=== PATIENT | female | born 1965 | race African-American/Black ===

== ENCOUNTER 2023-08-17 16:43 | Emergency (ER) | payer SELFPAY ==
--- NOTE | 2023-08-17 | ECG_ITS ---
Test Reason : SOB Blood Pressure : / mmHG Vent. Rate : 060 BPM Atrial Rate : 060 BPM P-R Int : 170 ms QRS Dur : 090 ms QT Int : 412 ms P-R-T Axes : 049 016 017 degrees QTc Int : 412 ms Normal sinus rhythm Normal ECG No previous ECGs available Referred By: Generic ED Physician Electronically Signed By:Stephon Jacques
[2023-08-17 16:55] VITALS: BP 183/102; BP 200/116; PULSE 69; PULSE 79; RESP 16; TEMP 36.3; O2SAT 100; O2SAT 99; BMI 32.8
[2023-08-17 17:18] LABS: MANUAL DIFF FLAG NO
[2023-08-17 17:22] LABS: Basophils Absolute Auto 0.1 X10*3/uL (0.0-0.2); Basophils Percent Auto 0.8 % (0-2); Eosinophils Absolute Auto 0.1 X10*3/uL (0.0-0.4); Eosinophils Percent Auto 0.7 % (0-4); Hematocrit 37.5 % (37.0-47.0); Hemoglobin 12.1 g/dl (12.0-16.0); Imm Gran Abs Auto 0.02 X10*3/uL (0.00-0.03); Imm Gran Pct Auto 0.3 % (0.0-0.4); Lymphocytes Absolute Auto 2.6 X10*3/uL (1.2-4.9); Lymphocytes Percent Auto 35.1 % (20-40); Mean Corpuscular HGB Conc 32.3 g/dl (31.0-35.0); Mean Corpuscular Hemoglobin 25.9 pg (27.0-33.0); Mean Corpuscular Volume 80.3 fL (80.0-98.0); Mean Platelet Volume 8.8 fL (9.4-12.3); Monocytes Absolute Auto 0.4 X10*3/uL (0.1-1.2); Monocytes Percent Auto 5.4 % (2-11); Neutrophils Absolute Auto 4.3 x10*3/uL (2.0-8.3); Neutrophils Percent Auto 57.7 % (45-73); Platelet Count 354 X10*3/uL (160-400); Red Blood Count 4.67 X10*6/uL (4.20-5.50); Red Cell Distribution Width 15.8 % (11.0-16.0); White Blood Count 7.4 X10*3/uL (4.8-10.8)
[2023-08-17 17:43] LABS: Alanine Aminotransferase 29 U/L (0-31); Albumin Level 3.6 g/dL (3.5-5.0); Alkaline Phosphatase 131 U/L (39-117); Anion Gap 9 (12-20); Aspartate Amino Transferase 22 U/L (5-31); Bilirubin Total 0.1 mg/dL (0.0-1.0); Blood Urea Nitrogen 16 mg/dL (9-16); Calcium 10.1 mg/dL (8.4-10.2); Carbon Dioxide 26 mmol/L (22-29); Chloride 110 mmol/L (96-108); Creatinine Clr Calc Pharmacy 86.2; Estimated Glomerular Filt Rate > 60; Glucose Random 107 mg/dL (60-115); Potassium 3.4 mmol/L (3.3-5.1); Sodium 142 mmol/L (135-145); Total Protein 7.6 g/dL (6.5-8.0)
[2023-08-17 17:55] VITALS: BP 181/80; PULSE 65; RESP 16; TEMP 36.4; O2SAT 99
[2023-08-17 18:19] LABS: Troponin-I High Sensitivity < 2.7 ng/L (<3.5-17.0)
--- NOTE | 2023-08-17 18:22 | ED_ITS ---
HPI - General Adult General Chief complaint: General Medical Stated complaint: feeling faint, weak,bp-200/116 Time Seen by Provider: 08/17/23 17:51 Source: patient, family, RN notes reviewed and old records reviewed Mode of arrival: ambulatory Limitations: no limitations History of Present Illness ED Provider: Alvaro MENDOZA narrative: 58-year-old female with past medical history significant for hypertension presents for evaluation of headache and ?feeling faint. ? 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 ? At the time my evaluation, the patient reports that she feels well with no complaints whatsoever Her blood pressure on arrival to the ED is 183/102 Related Data Previous Rx's ?Medication ?Instructions ?Recorded amlodipine 5 mg tablet 5 mg PO DAILY #30 tabs 08/17/23 Allergies Allergy/AdvReac Type Severity Reaction Status Date / Time No Known Allergies Allergy Verified 08/17/23 16:57 Review of Systems 2 Constitutional: Constitutional: Denies body ache(s), Denies chills, Denies fever(s) and Reports headache(s) Eyes: Eyes: Denies blurry vision ENT: Denies vertigo, Reports dizziness and Reports headache(s) Cardiovascular: Cardiovascular: Denies chest pain and Denies dyspnea Respiratory: Respiratory: Denies cough and Denies dyspnea Gastrointestinal: Gastrointestinal: Denies abdominal pain, Denies nausea and Denies vomiting Musculoskeletal: Musculoskeletal: Denies back pain, Denies arthralgias and Denies joint swelling Integumentary/Breasts: Skin/Breast: Denies rash Neurologic: Denies vertigo, Reports dizziness and Reports headache(s) [facility] Social History Social History Smoked in Last 30 Days: No Use of substances other than those prescribed or required for medical reasons: No Advance Directives: No Do you have a plan to hurt others: No Plan Patient : No Physical Exam ED Vital Signs: Vital Signs - 24 hr 08/17/23 16:55 08/17/23 17:55 08/17/23 19:06 Temperature 97.4 F 97.6 F Pulse Rate 69 65 Respiratory Rate 16 16 Blood Pressure 183/102 H 181/80 H 181/80 H Pulse Oximetry 100 99 Oxygen Delivery Method Room Air 08/17/23 19:12 Temperature 97.6 F Pulse Rate 65 Respiratory Rate 16 Blood Pressure 181/80 H Pulse Oximetry 99 Oxygen Delivery Method Room Air BMI result Body Mass Index 32.8 Const General: healthy appearing, comfortable, no acute distress, alert and awake Nutritional Appearance: well nourished Orientation/consciousness: patient oriented x3 HENMT Head: Yes normocephalic and Yes atraumatic Eyes Eyelids: Yes eyelids normal Conjunctivae: conjunctivae normal Sclerae: sclerae normal Corneas: corneas normal Pupils: Equal, round and reactive pupils present EOM: EOMs intact bilaterally Neck Neck: Yes full ROM Resp Effort & Inspection: normal respiratory effort, able to speak in complete sentences, no audible wheezes and not labored Auscultation: clear to auscultation bilaterally Cardio Rate: regular rate Rhythm: regular rhythm GI Inspection: No distended Palpation (GI): Soft to palpation, not firm, nontender, no guarding and not rigid Skin General skin exam: elasticity normal Neuro General: patient oriented x3 Cranial nerves: Yes CN's II-XII intact bilaterally, Yes Equal, round and reactive pupils present and Yes Bilaterally intact EOM present Cognition (Neuro): normal cognition Extrem Other: Moving all extremities well without any obvious deformities Medications Administered Discontinued Medications Generic Name Dose Route Start Last Admin Trade Name Freq PRN Reason Stop Dose Admin Amlodipine Besylate 5 mg 08/17/23 18:56 08/17/23 19:06 Amlodipine Besylate 5 Mg Tablet PO 08/17/23 18:57 5 mg ONCE ONE Administration Protocol Medical Decision Making Medical Decision Making [facility] Narrative: 58-year-old female presents for evaluation of lightheadedness and near syncope. The patient never had a syncopal episode, she denies any headache, chest pain. She has been noncompliant with her antihypertensive medication for least 1 month. She has unsure of the medication name that she discontinued. Her labs have no significant abnormalities, her EKG is nonischemic and without arrhythmia. The patient is hypertensive on arrival likely due to discontinuing her pressure medication. She is currently asymptomatic. I do not see any indication for further emergent workup. Will start the patient on amlodipine as she does not want to be on any diuretics at this time. She reports that she has a PCP in [place] that she will follow-up with Differential Diagnosis Differential Diagnoses: The differential diagnosis associated with the presentation includes Hypertension Hypertensive urgency Medication noncompliance Near-syncope Syncope ACS less likely Lab Data MDM Lab Attestation statement: I reviewed the patient's lab results. No leukocytosis or anemia. Normal platelet count. No electrolyte abnormalities. Normal renal function. Troponin undetectable 08/17/23 17:15 08/17/23 17:15 Labs: Lab Results 08/17/23 08/17/23 Range/Units 17:15 17:54 WBC 7.4 (4.8-10.8) X10*3/uL RBC 4.67 (4.20-5.50) X10*6/uL Hgb 12.1 (12.0-16.0) g/dl Hct 37.5 (37.0-47.0) % MCV 80.3 (80.0-98.0) fL MCH 25.9 L (27.0-33.0) pg MCHC 32.3 (31.0-35.0) g/dl RDW 15.8 (11.0-16.0) % Plt Count 354 (160-400) X10*3/uL MPV 8.8 L (9.4-12.3) fL Immature Gran % (Auto) 0.3 (0.0-0.4) % Neut % (Auto) 57.7 (45-73) % Lymph % (Auto) 35.1 (20-40) % Josephine % (Auto) 5.4 (2-11) % Eos % (Auto) 0.7 (0-4) % Baso % (Auto) 0.8 (0-2) % Lymph # (Auto) 2.6 (1.2-4.9) X10*3/uL Josephine # (Auto) 0.4 (0.1-1.2) X10*3/uL Eos # (Auto) 0.1 (0.0-0.4) X10*3/uL Baso # (Auto) 0.1 (0.0-0.2) X10*3/uL Abs Immat Gran (auto) 0.02 (0.00-0.03) X10*3/uL Absolute Neuts (auto) 4.3 (2.0-8.3) x10*3/uL Absolute Nucleated RBC 0.000 (0.0-0.012) X10*3/uL Nucleated RBC % (auto) 0.0 (0.0-0.2) /100WBC Sodium 142 (135-145) mmol/L Potassium 3.4 (3.3-5.1) mmol/L Chloride 110 H (96-108) mmol/L Carbon Dioxide 26 (22-29) mmol/L Anion Gap 9 L (12-20) BUN 16 (9-16) mg/dL Creatinine 0.73 (0.5-1.4) mg/dL Estim Creat Clear Calc 86.2 Estimated GFR > 60 Random Glucose 107 (60-115) mg/dL Calcium 10.1 (8.4-10.2) mg/dL Total Bilirubin 0.1 (0.0-1.0) mg/dL AST 22 (5-31) U/L ALT 29 (0-31) U/L Alkaline Phosphatase 131 H (39-117) U/L Troponin I High Sens < 2.7 (<3.5-17.0) ng/L Total Protein 7.6 (6.5-8.0) g/dL Albumin 3.6 (3.5-5.0) g/dL Independent Interpretation I performed an independent interpretation of an: EKG (Normal sinus rhythm with a rate of [address] segment elevations or depressions, no ectopy. No previous for comparison) Discharge Plan Discharge Clinical Impression: Hypertension Patient Disposition: Home, Self-Care Instructions: Chronic Hypertension (ED) Additional Instructions: Your workup in the ER today was reassuring Your blood pressure was elevated today and this is likely due to You discontinuing your blood pressure medication I prescribed a new medication called amlodipine 5 mg which you should take daily Follow-up with your primary doctor as soon as possible Return for new or worsening symptoms Prescriptions: New amlodipine 5 mg tablet 5 mg PO DAILY Qty: 30 0RF Interventions: ED Discharge Assessment Last Done: 08/17/23 19:12 Discharge Date/Time: 08/17/23 19:13 Print Language: Belgian
[2023-08-17 19:06] VITALS: BP 181/80
[2023-08-17] MEDS: amLODIPine Besylate 5 MG TABLET PO (19:06)
--- NOTE | 2023-08-17 19:10 | PC.NURSE ---
pt medicated per provider order.
[2023-08-17 19:12] VITALS: BP 181/80; PULSE 65; RESP 16; TEMP 36.4; O2SAT 99
== END 2023-08-17 19:13 | disposition home or self-care (01) ==
PROVIDERS: Emergency Provider Student in an Organized Health Care Education/Training Program
DX: I10 Essential (primary) hypertension (principal); Z91.148 Patient's other noncompliance with medication regimen for other reason; R51.9 Headache, unspecified; R06.02 Shortness of breath
CPT/HCPCS: 36415; 80053; 84484; 85025; 93005; 99283; 99284

== ENCOUNTER → 2023-08-17 17:08 | Outpatient (BNV) | payer SELFPAY | PROVIDERS: Emergency Provider Student in an Organized Health Care Education/Training Program; Visit Provider Internal Medicine Cardiovascular Disease | DX: R06.02 Shortness of breath (principal) | CPT/HCPCS: 93010 ==